=== PATIENT | male | born 1950 | race Caucasian/White ===

== ENCOUNTER 2016-08-24 13:42 | Day surgery (SDCO) | payer MEDICARE ==
[2016-08-24 14:28] LABS: BASOPHIL 0.5 % (0-2); EOSINOPHIL 3.9 % (0-7); HCT 43.2 % (42.0-52.0); HGB 14.6 g/dl (13.2-18.0); LYMPHOCYTE 21.9 % (15-48); MCH 29.7 pg (25.0-31.0); MCHC 33.8 g/dL (32.0-36.0); MCV 87.8 fL (78.0-100.0); MONOCYTE 11.6 % (0-12); MPV 10.6 fL (6.0-9.5); NEUTROPHIL 62.1 % (41-80); PLT 127 K/uL (150-400); RBC 4.92 M/uL (4.70-6.00); RDW 12.8 % (11.5-14.0); WBC 5.9 K/uL (4.0-10.5)
[2016-08-24 14:36] LABS: INR 1.03 (0.9-1.2); PROTHROMBIN TIME 13.1 SECONDS (11.7-14.0); PTT 21.8 SECONDS (23.2-31.4)
[2016-08-24 14:44] LABS: ALBUMIN 4.2 g/dL (3.4-4.8); BILIRUBIN - TOTAL 0.7 mg/dL (0.1-1.0); CREATININE 1.2 mg/dL (0.7-1.2); GLOBULIN (CALCULATION) 3.5 g/dL (2.2-4.2); POTASSIUM 4.5 mmol/L (3.5-5.1); TOTAL PROTEIN 7.7 g/dL (6.4-8.3)
[2016-08-25 05:12] LABS: BASOPHIL 0.4 % (0-2); EOSINOPHIL 4.9 % (0-7); HCT 38.2 % (42.0-52.0); HGB 13.3 g/dl (13.2-18.0); LYMPHOCYTE 27.7 % (15-48); MCH 30.3 pg (25.0-31.0); MCHC 34.8 g/dL (32.0-36.0); MPV 10.3 fL (6.0-9.5); PLT 130 K/uL (150-400); RBC 4.39 M/uL (4.70-6.00); RDW 12.4 % (11.5-14.0); WBC 4.9 K/uL (4.0-10.5)
[2016-08-25 05:30] LABS: CREATININE 1.1 mg/dL (0.7-1.2); POTASSIUM 3.8 mmol/L (3.5-5.1)
[2016-08-25] MEDS ORDERED: LISINOPRIL5 MG PO (12:41)
[2016-08-25] MEDS ORDERED: XARELTO15 MG PO (12:41)
[2016-08-25] MEDS ORDERED: ASPIRIN CHEWABL81 MG PO (12:41)
[2016-08-25] MEDS ORDERED: CERTAGEN1 EACH PO (12:41)
[2016-08-25] MEDS ORDERED: ZOCOR 20MG TABL20 MG PO (12:41)
== END 2016-08-25 13:00 | disposition home or self-care (01) ==
LOC: FER 13:42 → FTCU 15:31
PROVIDERS: Nurse Practitioner; ADMIT Internal Medicine
DX: I26.99 Other pulmonary embolism without acute cor pulmonale (principal); I82.402 Acute embolism and thrombosis of unspecified deep veins of left lower extremity; I10 Essential (primary) hypertension; E78.5 Hyperlipidemia, unspecified; M19.90 Unspecified osteoarthritis, unspecified site; Z90.89 Acquired absence of other organs; Z85.820 Personal history of malignant melanoma of skin; Z82.3 Family history of stroke; Z79.82 Long term (current) use of aspirin; Z79.899 Other long term (current) drug therapy; Z98.890 Other specified postprocedural states; D68.51 Activated protein C resistance
CPT/HCPCS: 36415; 71010; 80048; 80053; 81241; 83090; 84484; 85025; 85300; 85306; 85610; 85730; 86146; 86147; 93005; 93970; 96372; G0378